=== PATIENT | female | born 1970 | race African-American/Black ===

== ENCOUNTER → 2017-06-22 | Outpatient (CLI) | payer OTHER ==
[~2017-06-22] MED LIST: ACETAMINOPHEN-1 EAC1 PO; ALBUTEROL2.5 MG/0.5 INH; ALTACE10 M1; AMLODIPINE BESYL5 MG PO; AMOXICILLIN 50500 M1 PO; APAP/CODEINE ELI5 M1 OR; ASPIR 8181 MG PO; ATENOLOL 50MG T50 M1; ATORVASTATIN CA40 MG PO; AVAPRO 150 MG150 M1 PO; AVAPRO75 MG PO; BENICAR HCT 201 EACH PO; CARDIZEM CD240 MG PO; CLONIDINE0.1 PO; EDARBYCLOR 40-1 EAC1 PO; FLEXERIL PO; GLUCOPHAGE1000 MG PO; HYDROCHLOROTHIA25 M1; IBUPROFEN 600600 M1 PO; INVOKANA300 MG PO; JANUMET XR 1001 EACH PO; JANUVIA100 MG PO; KEFLEX500 MG PO; LEVAQUIN 500 M500 MG PO; LEVEMIR SUBQ; MEDROL DOSPAK21 TAB PO; NEXIUM40 MG PO; NORCO 5-325 TA1 EACH PO; NOVOLOG100 UNIT/1; PERCOCET 5-3251 EACH PO; PHENERGAN 25 MG25 M1 PO; PREDNISONE 10 M10 MG; PREDNISONE 20 M20 MG PO; PRILOSEC40 MG PO; PROAIR HFA8.5 GM INH; PROMETHAZI6.25 MG/2 PO; SYMBICORT160 MCG/4. INH; TESSALON PERLE100 MG PO; TRANDATE 200 M200 M1 PO; TUSSIONEX PENN473 ML PO; ULTRAM 50MG TAB50 MG PO; VERAPAMIL ER100 MG PO; [UNRECOGNIZED DRUG - OTHER]
== END ==
LOC: ULTRA 08:24
DX: R10.11 Right upper quadrant pain (principal)

== ENCOUNTER → 2017-07-07 | Outpatient (CLI) | payer OTHER | LOC: RAD 10:56 | DX: Z12.31 Encounter for screening mammogram for malignant neoplasm of breast (principal) ==

== ENCOUNTER 2017-09-20 07:15 | Emergency (ER) | payer OTHER ==
[~2017-09-20] VITALS: Ht 170.2 cm; Wt 111.6 kg
[2017-09-20] MEDS ORDERED: MEDROLDOSEPACK PO (08:49)
[2017-09-20] MEDS ORDERED: ULTRAM 50MG TAB50 MG PO (08:50)
== END 2017-09-20 09:17 | disposition home or self-care (01) ==
LOC: ER 07:15
DX: M79.672 Pain in left foot (principal); F17.210 Nicotine dependence, cigarettes, uncomplicated; I10 Essential (primary) hypertension; E11.9 Type 2 diabetes mellitus without complications; J45.909 Unspecified asthma, uncomplicated; E78.00 Pure hypercholesterolemia, unspecified; Z88.8 Allergy status to other drugs, medicaments and biological substances

== ENCOUNTER → 2018-07-20 | Outpatient (CLI) | payer OTHER ==
[~2018-07-20] MED LIST changes: +MEDROLDOSEPACK PO
== END ==
LOC: RAD 08:42
DX: Z12.31 Encounter for screening mammogram for malignant neoplasm of breast (principal)

== ENCOUNTER → 2021-05-11 | Outpatient (CLI) | payer OTHER | LOC: ULTRA 08:52 → CAT 08:52 | PROVIDERS: ATTEND Nurse Practitioner | DX: R91.8 Other nonspecific abnormal finding of lung field (principal); R10.11 Right upper quadrant pain ==

== ENCOUNTER → 2021-06-15 | Outpatient (CLI) | payer OTHER | LOC: RAD 14:30 | PROVIDERS: ATTEND Nurse Practitioner | DX: M25.552 Pain in left hip (principal) ==

== ENCOUNTER 2021-08-16 12:39 | Emergency (ER) | payer OTHER | END 2021-08-16 13:15 | disposition left against medical advice (07) | LOC: ER 12:39 | DX: M79.672 Pain in left foot (principal); Z53.21 Procedure and treatment not carried out due to patient leaving prior to being seen by health care provider; Z88.8 Allergy status to other drugs, medicaments and biological substances; Z88.6 Allergy status to analgesic agent ==